=== PATIENT | male | born 1985 | race Asian ===

== ENCOUNTER 2021-02-05 08:21 | Emergency (ER) | payer OTHER ==
[~2021-02-05] VITALS: Ht 167.6 cm; Wt 68.0 kg
[2021-02-05 08:26] VITALS: BP 105/82
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
[2021-02-05] MEDS ORDERED: TDAP [DIPH/PERTUSSIS/TET] 0.5 ML VIAL IM ONE ×2 (08:57→09:00)
--- NOTE | 2021-02-05 09:03 | NUR ---
Patient discharged to home in stable condition. Written and verbal after care instructions given. Patient verbalizes understanding of instruction.
== END 2021-02-05 09:02 | disposition home or self-care (01) ==
LOC: ER 08:26
DX: S70.12XA Contusion of left thigh, initial encounter (principal); Z98.890 Other specified postprocedural states; W50.3XXA Accidental bite by another person, initial encounter; Y93.89 Activity, other specified; Y92.89 Other specified places as the place of occurrence of the external cause; Y99.8 Other external cause status
CPT/HCPCS: 90715